=== PATIENT | male | born 1985 | race Caucasian/White ===

== ENCOUNTER 2016-09-09 16:09 | Emergency (ER) | payer BC ==
[2016-09-09 16:28] VITALS: BP 148/84
[2016-09-09] MEDS ORDERED: Ibuprofen TAB* 200 MG PO ONE (16:48)
[2016-09-09] MEDS ORDERED: Penicillin VK TAB* 250 MG PO ONE (16:49)
--- NOTE | 2016-09-09 17:06 | ED ---
Samantha Hobbs Michael, scribed for Hannah Aguirre MD on 09/09/16 at 1631 . Complex/Multi-Sys Presentation - HPI Summary HPI Summary: 30 y/o male comes to the ED presenting with intermittent, throbbing dental pain that started one day. The pt reports that the pain is aggravated with coldness and alleviated with warm water. He also states the cap on his bottom tooth came off one year ago and this is the second time he has pain in this same tooth. Pt denies trauma. States feels warm, but no documented fever. Pt denies ear ache, chills, sotre throate and dysphagia. The PMHx is significant for asthma. Pt has a dentist, has not called or seen > 1 year - History Of Current Complaint Chief Complaint: EDDentalPain Time Seen by Provider: 09/09/16 16:29 Hx Obtained From: Patient, Medical Records Onset/Duration: Sudden Onset, Lasting Days, Still Present Timing: Intermittent, Lasting: Severity Currently: Moderate Severity Initially: Moderate Location: Pain At: - bottom tooth Character: Throbbing Aggravating Factor(s): coldness Alleviating Factor(s): warm water Associated Signs And Symptoms: Positive: Fever, Other - positive:dental pain. Negative: chills. dysphagia. ear ache.. Negative: Nausea, Vomiting - Allergies/Home Medications Allergies/Adverse Reactions: Allergies Allergy/AdvReac Type Severity Reaction Status Date / Time No Known Allergies Allergy Verified 09/09/16 16:21 PMH/Surg Hx/FS Hx/Imm Hx Previously Healthy: Yes Endocrine/Hematology History: Denies: Hx Anticoagulant Therapy Respiratory History: Reports: Hx Asthma Infectious Disease History: No Infectious Disease History: Denies: Traveled Outside the [place] in Last 30 Days - Social History Occupation: Employed Full-time Lives: With Family Alcohol Use: Daily Alcohol Amount: 2 beers Substance Use Type: Reports: Marijuana Smoking Status (MU): Never Smoked Tobacco Review of Systems Constitutional: Negative Negative: Fever Eyes: Negative ENT: Negative Positive: Dental Pain. Negative: Ear Ache Cardiovascular: Negative Respiratory: Negative Gastrointestinal: Negative Negative: Vomiting, Nausea Genitourinary: Negative Musculoskeletal: Negative Skin: Negative Neurological: Negative Psychological: Normal All Other Systems Reviewed And Are Negative: Yes Physical Exam Triage Information Reviewed: Yes Vital Signs On Initial Exam: Initial Vitals Temp Pulse Resp BP Pulse Ox 98.4 F 88 16 148/84 100 09/09/16 16:11 09/09/16 16:11 09/09/16 16:11 09/09/16 16:11 09/09/16 16:11 Vital Signs Reviewed: Yes Appearance: Positive: Well-Appearing, No Pain Distress Skin: Positive: Warm, Skin Color Reflects Adequate Perfusion, Dry Head/Face: Positive: Normal Head/Face Inspection Eyes: Positive: Normal, EOMI, LIDA ENT: Positive: Normal ENT inspection, Pharynx normal, Dental tenderness, Other - #18 Pt with broken tooth, large cavity No fluctuance + TTP No fluctuance, no bleeding gum. Negative: Pharyngeal erythema, Nasal congestion, Nasal drainage, TMs normal Neck: Positive: Supple, Nontender, No Lymphadenopathy Respiratory/Lung Sounds: Positive: Clear to Auscultation, Breath Sounds Present Cardiovascular: Positive: Normal, RRR. Negative: Murmur Abdomen Description: Positive: Nontender, No Organomegaly, Soft Musculoskeletal: Positive: Normal, Strength/ROM Intact Neurological: Positive: Normal, Sensory/Motor Intact, Alert, Oriented to Person Place, Time Psychiatric: Positive: Normal, Affect/Mood Appropriate AVPU Assessment: Alert - [place] Coma Scale Best Eye Response: 4 - Spontaneous Best Motor Response: 6 - Obeys Commands Best Verbal Response: 5 - Oriented Diagnostics - Vital Signs Vital Signs Temp Pulse Resp BP Pulse Ox 09/09/16 16:11 98.4 F 88 16 148/84 100 - Laboratory Lab Statement: Any lab studies that have been ordered have been reviewed, and results considered in the medical decision making process. Complex Multi-Symp Course/Dx Assessment/Plan: Pt wit #18 dental pain - cap came off > 1 year, + temperature sensitive and TTP. No fluctuance. No facial edema - Diagnoses Provider Diagnoses: Pain, dental Discharge - Discharge Plan Condition: Stable Disposition: HOME Prescriptions: Acetaminop/Codeine 30 MG TAB* [Tylenol/Codeine 30 MG TAB*] 1 - 2 tab PO Q6H PRN #10 tab MDD 8 PRN Reason: Pain Penicillin VK TAB 500 MG(NF) 500 mg PO TID #30 tab Patient Education Materials: Toothache (ED) Referrals: Shahram Mendez MD [Primary Care Provider] - Additional Instructions: Okay to alternate ibuprofen (advil, motrin) and tylenol product (Tylenol or tylenol with codeine) every 3 hours for pain. Take with food. do NOT Take for more than 4-[address], operate machinery or drink alcohol while taking codeine Take antibiotics as prescribed until gone Okay to swish and spit with warm, salty water 2-3 times a day Okay to apply topical ambusol (numbing medication) Contact your dentist on Sunday to schedule a follow-up appointment The documentation as recorded by the Samantha styles Michael accurately reflects the service I personally performed and the decisions made by me, Hannah Aguirre MD.
== END 2016-09-09 17:13 | disposition home or self-care (01) ==
LOC: ED 16:09
DX: K08.89 Other specified disorders of teeth and supporting structures (principal); J45.909 Unspecified asthma, uncomplicated
CPT/HCPCS: 99282; A9270-GY